=== PATIENT | male | born 1950 | race Caucasian/White ===

== ENCOUNTER 2017-10-13 06:36 | Day surgery (SDC) | payer MEDICARE ==
[~2017-10-13] VITALS: Ht 172.7 cm; Wt 75.0 kg
[2017-10-13] MEDS ORDERED: FLUT1INH7 INH (07:10)
[2017-10-13] MEDS ORDERED: CARD8TAB2 PO (07:10)
[2017-10-13 07:12] VITALS: BP 134/76; PULSE 68; RESP 20; TEMP 97.8; O2SAT 94
[2017-10-13] MEDS ORDERED: SODIUM CHLOR 0.45% 1000 ML INJ 1,000 ML IV SCH (07:15)
[2017-10-13] MEDS ORDERED: LACTATED RINGER'S 1000 ML IV PRN (07:30)
[2017-10-13] MEDS ORDERED: SODIUM CHLORID 0.9% 500 ML IV PRN (07:30)
[2017-10-13] MEDS ORDERED: METOPROLOL TARTRATE 25 MG TAB PO PRN (07:30)
[2017-10-13 07:34] LABS: AUTOMATED NEUTROPHIL # 4.3 TH/MM3 (1.8-7.7); BASOPHIL # 0.1 TH/MM3 (0-0.2); BASOPHIL % 0.8 % (0.0-2.0); EOSINOPHIL # 0.2 TH/MM3 (0-0.4); EOSINOPHIL % 2.6 % (0.0-4.0); HEMATOCRIT 37.6 % (39.0-51.0); HEMOGLOBIN 13.3 GM/DL (13.0-17.0); LYMPH % 19.7 % (9.0-44.0); LYMPHOCYTE # 1.3 TH/MM3 (1.0-4.8); MEAN CELL VOLUME 81.8 FL (80.0-100.0); MEAN CORPUSCULAR HEMOGLOBIN 28.8 PG (27.0-34.0); MEAN CORPUSCULAR HGB CONC 35.3 % (32.0-36.0); MEAN PLATELET VOLUME 8.1 FL (7.0-11.0); MONO % 9.3 % (0.0-8.0); MONOCYTE # 0.6 TH/MM3 (0-0.9); NEUT % 67.6 % (16.0-70.0); PLATELET COUNT 182 TH/MM3 (150-450); RED CELL DISTRIBUTION WIDTH 14.3 % (11.6-17.2); WHITE BLOOD COUNT 6.4 TH/MM3 (4.0-11.0)
[2017-10-13 07:44] LABS: INTERNATIONAL NORMALIZED RATIO 1.1 RATIO; PROTHROMBIN TIME - PATIENT 10.7 SEC (9.8-11.6)
[2017-10-13 08:06] LABS: BICARBONATE 23.5 MEQ/L (21.0-32.0); CALCIUM 8.8 MG/DL (8.5-10.1); CREATININE 1.2 MG/DL (0.60-1.30)
[2017-10-13] MEDS ORDERED: *RESP: ALBUTEROL 2.5 MG/3 ML NEB (PRN) PERIprocedural Use ONLY NEB ONE (08:47)
[2017-10-13] MEDS ORDERED: MIDAZOLAM HCL 2 MG/2 ML VIAL ONE (08:49)
[2017-10-13] MEDS ORDERED: ePHEDrine/NS 25 MG/5 ML SYRINGE ONE (08:58)
[2017-10-13] MEDS ORDERED: DO NOT ADM ANY ANTICOAGULANT DRUGS PRN (09:00)
--- NOTE | 2017-10-13 09:46 | RADRPT ---
EXAM DATE/TIME: 10/13/2017 09:10 [place] COMPARISON: No previous studies available for comparison. INDICATIONS : Post bronchoscopy. MEDICAL HISTORY : none known SURGICAL HISTORY : none known ENCOUNTER: Initial ACUITY: 1 day PAIN SCORE: Non-responsive. LOCATION: Bilateral chest FINDINGS: A single view of the chest demonstrates some parenchymal changes in the right hilar area. Otherwise t he rest the lungs are grossly clear. No evidence of pneumothorax. The heart size is upper limits of normal.. Osseous structures are intact. CONCLUSION: No evidence of pneumothorax. Joe Rene MD on October 13, 2017 at 9:44 Board Certified Radiologist. This report was verified electronically.
[2017-10-13 10:05] VITALS: BP 116/64; PULSE 74; RESP 20; TEMP 97.6; O2SAT 96
--- NOTE | 2017-10-13 10:07 | MP ---
cc: Emiliano Cummings MD DATE OF OPERATION: 10/13/2017 PROCEDURE PERFORMED: Fiberoptic bronchoscopy, flexible. REASON FOR BRONCHOSCOPY: Right lung mass, malignancy suspect. PROCEDURE: Fiberoptic bronchoscopy performed via LMA. Vocal cords intact. Trachea moderately hyperemic. Whitish mucoid secretion removed. The desmond with mass lesions on both sides, sessile, on both sides of the desmond both right and left. Right mainstem bronchus with edematous change and excess mucus throughout; however, no endobronchial obstruction or mass lesions seen. Left upper and lower lobe without mass lesion. Right mainstem bronchus with edematous change, mass lesions, multiple lesions within the right upper lobe, as well as the bronchus intermedius noted. Biopsies of all of the bronchus intermedius taken x 3, one at the bifurcation of the right upper lobe all placed in [place]. Bronchial washings obtained as well from the right mainstem bronchus and bronchus intermedius, as well as brushings of the upper lobe and the bronchus intermedius for cytologic exam. The procedure was well tolerated. The patient transferred to recovery in stable condition. IMPRESSION: 1. Multiple masses in the right mainstem bronchus and branches as above. 2. Samples obtained as above. 3. Procedure well tolerated. 4. The patient transferred to the recovery room in stable condition. Emiliano Crespo. MD Emiliano WWW/DL/ , 08:29 AM , 08:51 AM
[2017-10-13 10:20] VITALS: BP 108/53; PULSE 73; RESP 20; O2SAT 95
[2017-10-13 10:45] VITALS: BP 111/59; PULSE 75; RESP 20; O2SAT 95
--- NOTE | 2017-10-13 18:48 | EKG ---
Date Performed: 10/13/2017 Time Performed: 07:04:43 PTAGE: 67 years EKG: Sinus rhythm NORMAL ECG NO PREVIOUS TRACING DOCTOR: Brooks Etienne Interpretating Date/Time 10/13/2017 18:43:41
== END 2017-10-13 10:55 | disposition home or self-care (01) ==
LOC: HROP 06:36 → HRIP 06:42 → HROP 10:55
PROVIDERS: ATTEND Internal Medicine Sleep Medicine
DX: R91.8 Other nonspecific abnormal finding of lung field (principal); J44.9 Chronic obstructive pulmonary disease, unspecified; N40.0 Benign prostatic hyperplasia without lower urinary tract symptoms; Z01.818 Encounter for other preprocedural examination; Z01.810 Encounter for preprocedural cardiovascular examination
CPT/HCPCS: 00520; 31625; 71045; 80048; 85025; 85610; 85730; 88112; 88305; 88341; 88342; 93005; J2250; J7613; 94664